=== PATIENT | male | born 1970 | race Caucasian/White ===

== ENCOUNTER → 2023-05-14 | Day surgery (SDC) | payer OTHER ==
[~2023-05-14] MED LIST: Ketamine 200 MG/20 ML MDV ONE; Midazolam 1 MG/ML 2 ML SDV ONE; Propofol 200 MG/20 ML SDV ONE; fentaNYL 50 MCG/ML SDV ONE
[2023-05-14] MEDS: Lactated Ringers 1,000 ML IV SCH (10:06)
[2023-05-14 13:17] VITALS: BP 119/76; PULSE 62
== END ==
LOC: CC.SDS 09:35
PROVIDERS: ATTEND Family Medicine
DX: Z12.11 Encounter for screening for malignant neoplasm of colon (principal); M19.90 Unspecified osteoarthritis, unspecified site; R53.83 Other fatigue; B35.1 Tinea unguium; N40.1 Benign prostatic hyperplasia with lower urinary tract symptoms; R35.1 Nocturia; E78.5 Hyperlipidemia, unspecified; E55.9 Vitamin D deficiency, unspecified; Z80.0 Family history of malignant neoplasm of digestive organs; Z79.82 Long term (current) use of aspirin; Z79.899 Other long term (current) drug therapy
CPT/HCPCS: 00812; J2250; J2704; J3010; J3490; J7120